=== PATIENT | male | born 1985 | race Two or more races ===

== ENCOUNTER 2018-01-19 16:40 | Emergency (ER) | payer SELFPAY ==
[~2018-01-19] VITALS: Ht 162.6 cm; Wt 117.9 kg
[2018-01-19 16:50] VITALS: BP 139/87
[2018-01-19] MEDS: LIDOCAINE W/ EPINEPHRINE 2% INJ 20ML VIAL ONE (19:34)
[2018-01-19] MEDS: LIDOCAINE W/ EPINEPHRINE 2% INJ 20ML VIAL IJ ONE (20:11)
== END 2018-01-19 20:41 | disposition home or self-care (01) ==
LOC: ER 16:40
DX: S51.811D Laceration without foreign body of right forearm, subsequent encounter (principal); X58.XXXD Exposure to other specified factors, subsequent encounter